=== PATIENT | female | born 1955 | race Caucasian/White ===

== ENCOUNTER → 2017-02-19 | Outpatient (CLI) | payer OTHER ==
[~2017-02-19] MED LIST: ASPI-664 PO; BENA20TA48 PO; EMTR1TAB11 PO; GEMF600T PO; LORA2ORA2 PO; OMEP20CA16 PO; PARO20TA58 PO; [UNRECOGNIZED DRUG - CODE] GTB; [UNRECOGNIZED DRUG - CODE] PO
--- NOTE | 2017-02-19 12:06 | RADRPT ---
PROCEDURE: XR bilateral knees. CLINICAL INDICATION: Knee pain TECHNIQUE: AP weightbearing, PA weightbearing, lateral weightbearing and sunrise views of each kne e are available for review. COMPARISON: None available FINDINGS: Right knee: There is moderate osteoarthrosis involving the right medial tibial femoral compartment and mild oste oarthrosis involving the patellofemoral compartment .This is associated with joint space narrowing, subchondral sclerosis and osteophytosis. Left knee: There is mild osteoarthrosis involving the left patellofemoral compartment. This is associated with joint space narrowing and osteophytosis. There is otherwise normal mineralization, architecture and alignment. No fractures are identified. No osseous lesions are identified. The soft tissues are unremarkable. IMPRESSION: Moderate osteoarthrosis involving the right medial tibial femoral compartment and mild osteoarthrosi s involving the patellofemoral compartment Mild osteoarthrosis involving the left patellofemoral compartment. RPTAT: [facility] .Werner Boyer MD, Date Time Electronically viewed and signed by .Werner Boyer MD, on 02/19/2017 12:05 .B/
== END | disposition home or self-care (01) ==
LOC: HKI 11:09
PROVIDERS: ATTEND Orthopaedic Surgery
DX: M25.561 Pain in right knee (principal); M25.562 Pain in left knee; M17.0 Bilateral primary osteoarthritis of knee
CPT/HCPCS: 73564; Z7500; G0463

== ENCOUNTER → 2017-03-24 | Outpatient (CLI) | payer OTHER ==
--- NOTE | 2017-03-24 11:42 | PN ---
Date/Time of Note Date/Time of Note DATE: 03/24/17 TIME: 11:38 Assessment/Plan VTE Prophylaxis VTE Prophylaxis Intervention: ambulation Assessment/Plan Assessment/Plan ASSESSMENT: Right knee osteoarthritis PLAN: The patient underwent a Monovisc injection intra-articularly to her right knee today. She tolerated the procedure well. She was given postinjection precautions. She is to modify her activity today and take Tylenol or Motrin as needed for pain. Additionally she can apply ice to her right knee as needed. We will see her back on an as-needed basis however will work on authorization for left knee injection as well. PROCEDURE: The procedure was fully explained to the patient and informed consent was obtained prior to the start of procedure. There is prepped and draped in sterile fashion using Betadine. Using ethyl chloride, the superior lateral aspect of the right knee was anesthetized and 4 cc of Monovisc was injected intra-articularly. The patient tolerated the procedure well. Sterile dressing was applied. All questions and concerns were addressed at the time of the procedure. Subjective 24 Hr Interval Summary Free Text/Dictation The patient presents today for a follow-up evaluation on her bilateral knees. We were only able to authorize Monovisc injection for her right knee, and she is here today for an injection. She denies any fevers or chills but is complaining of discomfort to the right knee. She has had a cortisone injection in the past with no adverse events. She continues to have discomfort with ambulating up and down the stairs as well as with walking to bilateral knees. She presents today for evaluation and an injection to her right knee. Exam/Review of Systems Exam On exam today, she is alert and oriented 4, and in no acute distress. Exam of the right knee demonstrates no effusion. Range of motion is 0130. There is no erythema, or warmth noted. Varus and valgus forces are stable. She does have 2+ patellofemoral crepitus. Homans sign is otherwise negative. Compartments are soft. She is neurovascularly intact distally. ROHAN MCKINNON PA-C Mar 24, 2017 11:42
== END | disposition home or self-care (01) ==
LOC: HKI 11:01
PROVIDERS: ATTEND Orthopaedic Surgery
DX: M17.11 Unilateral primary osteoarthritis, right knee (principal)
CPT/HCPCS: 20610; J7327

== ENCOUNTER → 2017-06-24 | Outpatient (CLI) | payer OTHER ==
--- NOTE | 2017-06-24 14:40 | HKNOTE ---
DATE OF SERVICE: 06/24/2017 CHIEF COMPLAINT: Right knee pain. HISTORY OF PRESENT ILLNESS: This is a 61-year-old female with bilateral knee osteoarthritis. She h as previously seen Dr. Shoaib Cabezas. She had a right Monovisc injection in March 2017. She is compla ining of increasing pain in the right knee. She denies any locking or catching. The pain is on the inside of the knee. She does not use any assistive devices. She denies any groin or back pain. S he takes ibuprofen for pain control. She has no other complaints. GAIT: Antalgic gait, no use of assistive device. RIGHT KNEE EXAM: Neutral alignment 0 to 130 degrees range of motion. Medial joint line tenderness. No tenderness over the lateral joint line. Negative Danette's. Negative anterior drawer, negati ve posterior drawer, negative Johnnie. Motor strength is 5/5, quadriceps, hamstring, tibialis anter ior, gastric soleus and peroneals. LEFT KNEE EXAM: Neutral alignment 0 to 130 degrees range of motion. Medial joint line tenderness. No tenderness over the lateral joint line. Negative Danette's. Negative anterior drawer, negativ e posterior drawer, negative Johnnie. Motor strength is 5/5, quadriceps, hamstring, tibialis anteri or, gastric soleus and peroneals. IMAGING: X-rays of the right knee, 3 views of the right knee demonstrate medial joint space narrowi ng with peripheral osteophytes and subchondral sclerosis. X-rays of the left knee, 3 views of the l eft knee demonstrate medial joint space narrowing with peripheral osteophytes and subchondral sclero sis. IMPRESSION: A 61-year-old female with bilateral knee osteoarthritis. PLAN: We will request authorization for Monovisc injection of the right knee. She will return foll owing her authorization for the injection. Dictated By: HEDY KUMAR/LALIT Conf#: [id number] DID#: [id number]
== END | disposition home or self-care (01) ==
LOC: HKI 13:30
PROVIDERS: ATTEND Orthopaedic Surgery Adult Reconstructive Orthopaedic Surgery
DX: M17.0 Bilateral primary osteoarthritis of knee (principal)
CPT/HCPCS: G0463